=== PATIENT | female | born 2000 | race Caucasian/White ===

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

== ENCOUNTER → 2020-09-26 | Outpatient (CLI) | payer BC | LOC: COL.RAD 12:35 | DX: R10.2 Pelvic and perineal pain (principal); Z97.5 Presence of (intrauterine) contraceptive device ==

== ENCOUNTER → 2021-07-22 | Emergency (ER) | payer BC ==
[~2021-07-22] VITALS: Ht 177.8 cm; Wt 79.5 kg
[~2021-07-22] MED LIST: ZOFRAN ODT4 MG PO
[2021-07-22 15:59] LABS: COLLECTION METHOD CLEAN CATCH
[2021-07-22 16:02] LABS: BASO % 0.1 % (0.0-2.0); GRAN % 88.5 % (42.2-75.2); HEMATOCRIT 42.5 % (35.0-45.0); HEMOGLOBIN 14.6 g/dl (12.0-15.0); LYMPH # 0.8 K/mm3 (1.2-3.4); LYMPH % 5.6 % (20.0-51.0); MEAN CELL VOLUME 89 fl (80.0-95.0); MEAN CORPUSCULAR HEMOGLOBIN 31 pg (26.0-32.0); MEAN CORPUSCULAR HGB CONC 34 g/dl (33.0-37.0); MEAN PLATELET VOLUME 9.5 fl (7.4-10.4); MONO # 0.8 K/mm3 (0.1-0.6); MONO % 5.5 % (1.7-9.3); PLATELET COUNT 212 K/mm3 (130-400); RED BLOOD COUNT 4.77 M/mm3 (4.10-5.30); REDCELL DISTRIBUTION WIDTH-CV 12.1 % (11.5-14.5)
[2021-07-22 16:22] LABS: ALBUMIN 4.4 gm/dL (3.5-5.0); BILIRUBIN,TOTAL 0.6 mg/dL (0.2-1.2); C-REACTIVE PROTEIN 1.8 mg/dL (0.00-0.50); CALCIUM 9.7 mg/dL (8.4-10.2); CREATININE, serum 0.85 mg/dL (0.57-1.11); POTASSIUM 3.8 mmol/L (3.5-4.5); TOTAL PROTEIN 7.9 gm/dL (6.2-8.1)
[2021-07-22 17:32] LABS: MUCOUS Present /lpf; PH 7 (5-8); SQUAMOUS EPITHELIAL None Seen /hpf; URINE APPEARANCE Clear; URINE BACTERIA None Seen /hpf; URINE BILIRUBIN Negative (NEGATIVE); URINE BLOOD Negative (NEGATIVE); URINE COLOR Yellow; URINE GLUCOSE Negative (NEGATIVE); URINE KETONE 2+ (NEGATIVE); URINE LEUKOCYTE ESTERASE Negative (NEGATIVE); URINE NITRATE Negative (NEGATIVE); URINE PROTEIN(semi-quant) Negative (NEGATIVE); URINE RBC 0-2 /hpf; URINE UROBILINOGEN Negative (NEGATIVE)
[2021-07-22 18:01] VITALS: BP 104/48; PULSE 95; TEMP 98.2
== END ==
LOC: COL.ER 14:46
PROVIDERS: Emergency Medicine
DX: R50.9 Fever, unspecified (principal); R11.2 Nausea with vomiting, unspecified; R10.813 Right lower quadrant abdominal tenderness
CPT/HCPCS: J2405; J2550; J7030; Q9967

== ENCOUNTER → 2022-11-23 | Outpatient (CLI) | payer BC ==
[2022-11-23 16:18] LABS: PROLACTIN 14.1 ng/mL (5.18-26.53); THYROID STIMULATING HORMONE 0.757 uIU/mL (0.350-4.940)
[2022-11-23 23:28] LABS: FOLLICLE STIMULATING HORMONE 7.4 mIU/mL (())
[2022-11-25 09:39] LABS: TESTOSTERONE, BIOAVAIL LC-MS 45.7 ng/dL (2.2-20.6)
== END ==
LOC: COL.LAB 14:36
DX: N91.5 Oligomenorrhea, unspecified (principal)

== ENCOUNTER → 2022-12-16 | Outpatient (CLI) | payer BC ==
[2022-12-16 23:23] LABS: HCG SERUM, QUANTITATIVE (BETA) <5 mIU/mL (())
== END ==
LOC: COL.LAB 12-15 17:27
PROVIDERS: Student in an Organized Health Care Education/Training Program
DX: N83.202 Unspecified ovarian cyst, left side (principal)